=== PATIENT | female | born 1955 | race Caucasian/White ===

== ENCOUNTER 2018-03-27 12:04 | Inpatient (IN) | payer MEDICAID ==
[~2018-03-27] VITALS: Ht 160 cm; Wt 82.7 kg
[~2018-03-27 12:04] MED LIST: ALBU18HF2 IH; ALBU2.5V9 NEB; AMOX-422 PO; BUDE10.2 IH; DOCU-28 PO; LEVO75TA7 PO; SPIIN IH; VENL75CA61 PO
[2018-03-27] MEDS ORDERED: albuterol 2.5 MG/3 ML nebule CONTNEB PRN (12:10)
[2018-03-27] MEDS ORDERED: methylPREDNISolone sod succ 125mg/2ml vial IV ONE (12:10)
[2018-03-27] MEDS ORDERED: azithromycin/NS 500mg/250ml 250 ML IV ONE (12:10)
[2018-03-27] MEDS ORDERED: vancomycin/NS 1 GM ADD-VANTAGE 250 ML IV ONE (12:10)
[2018-03-27] MEDS ORDERED: cefepime 1GM/NS ADD-VANTAGE 100 ML IV ONE (12:10)
[2018-03-27] MEDS ORDERED: ipratropium 0.5 MG/2.5ML nebule IH ONE (12:10)
[2018-03-27] MEDS: magnesium 1gm/100ml D5W IVPB 100 ML IV SCH ×2 (12:26→13:37)
[2018-03-27 12:27] LABS: BASOPHILS % (AUTO) 0.3 % (0-1); EOSINOPHILS # (AUTO) 0.3 X10'3 (0-0.9); HEMATOCRIT 36.3 % (35.0-45.0); HEMOGLOBIN 12.5 g/dl (12.0-16.0); LYMPHOCYTES # (AUTO) 2.1 X10'3 (1.1-4.8); MEAN CORPUSCULAR HEMOGLOBIN 29.8 PG (27.0-31.0); MEAN CORPUSCULAR HGB CONC 34.5 % (33.0-36.5); MEAN CORPUSCULAR VOLUME 86.4 FL (78-98); MEAN PLATELET VOLUME 7.8 FL (7.4-10.4); MONOCYTES # (AUTO) 1.7 X10'3 (0-0.9); MONOCYTES % (AUTO) 11.9 % (2-12); NEUTROPHILS # (AUTO) 10.5 X10'3 (1.8-7.7); NEUTROPHILS % (AUTO) 71.8 % (42-75); PLATELET COUNT 274 X10'3 (140-440); RED CELL DISTRIBUTION WIDTH 14.9 % (11.5-14.5); WHITE BLOOD COUNT 14.6 X10'3 (4.5-11.0)
[2018-03-27] MEDS ORDERED: normal saline 1000ml 1,000 ML IV ONE (12:35)
[2018-03-27 12:38] LABS: INR 0.9 INR; PARTIAL THROMBOPLASTIN TIME 31 SECONDS (22-32); PROTHROMBIN TIME 9.6 SECONDS (9.0-12.0)
[2018-03-27 12:43] LABS: ALANINE AMINOTRANSFERASE 25 U/L (12-78); ALBUMIN 3.4 G/DL (3.4-5.0); ALBUMIN/GLOBULIN RATIO 0.9 (1.1-1.5); ALKALINE PHOSPHATASE 78 IU/L (46-116); ANION GAP 9 (8-16); ASPARTATE AMINO TRANSFERASE 18 U/L (10-37); BILIRUBIN,TOTAL 1.3 MG/DL (0.1-1.0); BLOOD UREA NITROGEN 10 MG/DL (7-18); BUN/CREATININE RATIO 12.2 (6.6-38.0); CALCIUM 9.3 MG/DL (8.5-10.1); CHLORIDE 100 MMOL/L (99-107); CREATININE 0.82 MG/DL (0.40-0.90); GLUCOSE 137 MG/DL (70-104); MAGNESIUM 1.7 MG/DL (1.5-2.4); POTASSIUM 3.8 MMOL/L (3.5-5.1); SODIUM 140 MMOL/L (135-145); TOTAL CARBON DIOXIDE 31.1 MMOL/L (24-32); TOTAL PROTEIN 7.4 G/DL (6.4-8.2); eGFR 71 ML/MIN
[2018-03-27 13:30] LABS: ABG BASE EXCESS 1.8 mmol/L (-2.0-3.0); ABG HCO3 28.4 mmol/L (22.0-26.0); ABG OXYGEN SATURATION 98.9 % (95-98); ABG PCO2 (T) 53.4 mmHg (32.0-45.0); ABG PH (T) 7.344 (7.350-7.450); ABG PO2 (T) 225.2 mmHg (83-108); ALLEN'S TEST Positive; FCOHb 0.1 % (0.5-1.5); FMetHb 0.2 % (0.3-1.12); FO2Hb 98.6 % (94-100); RESPIRATORY RATE 12 b/min; TOTAL HEMOGLOBIN 12.2 G/dl (12.0-16.0)
[2018-03-27] MEDS ORDERED: acetaminophen 325mg tablet PO PRN ×2 (15:00)
[2018-03-27] MEDS ORDERED: ondansetron/PF 4mg/2ml inj IV PRN (15:00)
[2018-03-27 15:29] LABS: CLARITY,URINE SLIGHTLY CLOUDY (Clear); COLOR,URINE YELLOW (Yellow); GLUCOSE, URINE NEGATIVE (Neg); KETONES,URINE NEGATIVE (Neg); LEUKOCYTE ESTERASE ,URINE MODERATE (Neg); NITRITES, URINE NEGATIVE (Neg); OCCULT BLOOD,URINE TRACE-LYSED (Neg); PROTEIN,URINE TRACE mg/dl (Neg); UROBILINOGEN,URINE 0.2 E.U/dL (0.2-1.0)
[2018-03-27 15:30] LABS: UA COLLECTION TYPE CLN CATCH MIDSTREAM
[2018-03-27 15:42] LABS: MUCUS STRANDS FEW /LPF (Neg); SQUAMOUS EPITHELIAL CELL,UR MODERATE /LPF (FEW)
[2018-03-27 15:43] LABS: BACTERIA,URINE 1+ /HPF (Neg); RBC,URINE 0-2 /HPF (0-2)
[2018-03-27] MEDS ORDERED: LEVA15HF4 INH (15:54)
[2018-03-27] MEDS ORDERED: FLUT16SP2 BOTHNARES (16:03)
[2018-03-27 16:45] VITALS: BP 140/79
[2018-03-27] MEDS ORDERED: non-formulary drug (Albuterol Sulfate (Ventolin Hfa) 2 PUFFS) IH PRN (18:20)
[2018-03-27] MEDS ORDERED: non-formulary drug (Levalbuterol Tartrate (Xopenex Hfa) 2 PUFFS) INH SCH (18:20)
[2018-03-27] MEDS ORDERED: albuterol 2.5 MG/3 ML nebule NEB PRN (18:20)
[2018-03-27 19:00] VITALS: BP 118/72
[2018-03-27] MEDS ORDERED: albuterol 2.5 MG/3 ML nebule NEB SCH (19:00)
[2018-03-27] MEDS ORDERED: dextrose ORAL solution 15 GM/59 ML bottle PO PRN ×2 (19:30)
[2018-03-27] MEDS ORDERED: dextrose 50%-water 50ml dispensing syringe IV PRN ×2 (19:30)
[2018-03-27] MEDS ORDERED: MESSAGE TO PHARMACY PO ONE (19:30)
[2018-03-27] MEDS ORDERED: glucagon, human recombinant 1mg kit SUBCUT PRN (19:30)
[2018-03-27] MEDS ORDERED: insulin Lispro (HumaLOG) vial - multi-dose SQ SCH (19:30)
[2018-03-27] MEDS: docusate sod 100mg capsule PO SCH (20:09)
[2018-03-27] MEDS: guaiFENesin ER 600mg tablet PO SCH (20:10)
[2018-03-27] MEDS: fluticasone nasal spray 16GM bottle NS SCH (20:10)
[2018-03-27] MEDS: levoFLOXACIN-Levaquin 750MG/D5 150 ML IV SCH (20:20)
[2018-03-27] MEDS: insulin glargine (Lantus) pen - multi-dose SQ SCH (21:00)
[2018-03-27] MEDS: ipratropium 0.5 MG/2.5ML nebule IH SCH (21:26)
[2018-03-27] MEDS: budesonide 0.5mg/2ml UD nebule IH SCH (21:26)
[2018-03-27 23:00] VITALS: BP 134/68
[2018-03-28] MEDS: methylPREDNISolone sod succ 125mg/2ml vial IV SCH ×3 (00:10→17:54)
[2018-03-28] MEDS: ipratropium 0.5 MG/2.5ML nebule IH SCH ×4 (02:33→20:40)
[2018-03-28 03:00] VITALS: BP 138/84
[2018-03-28 05:50] LABS: BASOPHILS % (AUTO) 0.1 % (0-1); EOSINOPHILS # (AUTO) 0.1 X10'3 (0-0.9); EOSINOPHILS % (AUTO) 1.1 % (0-6); HEMATOCRIT 33.4 % (35.0-45.0); HEMOGLOBIN 11.2 g/dl (12.0-16.0); LYMPHOCYTES # (AUTO) 0.8 X10'3 (1.1-4.8); MEAN CORPUSCULAR HEMOGLOBIN 29.2 PG (27.0-31.0); MEAN CORPUSCULAR HGB CONC 33.7 % (33.0-36.5); MEAN CORPUSCULAR VOLUME 86.7 FL (78-98); MEAN PLATELET VOLUME 8.2 FL (7.4-10.4); MONOCYTES # (AUTO) 0.3 X10'3 (0-0.9); MONOCYTES % (AUTO) 2.5 % (2-12); NEUTROPHILS # (AUTO) 9.1 X10'3 (1.8-7.7); NEUTROPHILS % (AUTO) 88.3 % (42-75); PLATELET COUNT 245 X10'3 (140-440); RED BLOOD COUNT 3.85 X10'6 (4.20-5.60); RED CELL DISTRIBUTION WIDTH 14.5 % (11.5-14.5); WHITE BLOOD COUNT 10.3 X10'3 (4.5-11.0)
[2018-03-28 06:20] LABS: ALBUMIN 3.1 G/DL (3.4-5.0); ANION GAP 6 (8-16); BLOOD UREA NITROGEN 10 MG/DL (7-18); BUN/CREATININE RATIO 11.6 (6.6-38.0); CALCIUM 9.2 MG/DL (8.5-10.1); CHLORIDE 102 MMOL/L (99-107); CREATININE 0.86 MG/DL (0.40-0.90); GLUCOSE 162 MG/DL (70-104); POTASSIUM 4.2 MMOL/L (3.5-5.1); SODIUM 139 MMOL/L (135-145); TOTAL CARBON DIOXIDE 30.6 MMOL/L (24-32); eGFR 67 ML/MIN
[2018-03-28 07:00] VITALS: BP 143/77
[2018-03-28] MEDS: levalbuterol 0.63mg/3ml nebule IH SCH ×3 (07:20→20:40)
[2018-03-28] MEDS: budesonide 0.5mg/2ml UD nebule IH SCH ×2 (07:22→20:40)
[2018-03-28] MEDS: levoFLOXACIN-Levaquin 750MG/D5 150 ML IV SCH (08:18)
[2018-03-28] MEDS: docusate sod 100mg capsule PO SCH ×2 (08:19→20:00)
[2018-03-28] MEDS: enoxaparin 40mg/0.4ml syringe SUBCUT SCH (08:19)
[2018-03-28] MEDS: guaiFENesin ER 600mg tablet PO SCH ×2 (08:19→20:00)
[2018-03-28] MEDS: levoTHYROXINE 75mcg tablet PO SCH (08:19)
[2018-03-28] MEDS: fluticasone nasal spray 16GM bottle NS SCH ×2 (09:16→21:00)
[2018-03-28 11:00] VITALS: BP 127/80
[2018-03-28 15:00] VITALS: BP 116/62
[2018-03-28 19:00] VITALS: BP 106/69
[2018-03-28] MEDS: lactobacillus rhamnosus 10,000 MMU CELLS/CAPSULE PO SCH (20:00)
[2018-03-28] MEDS: insulin glargine (Lantus) pen - multi-dose SQ SCH (21:00)
[2018-03-28 23:00] VITALS: BP 100/62
[2018-03-29] MEDS: methylPREDNISolone sod succ 125mg/2ml vial IV SCH ×2 (00:34→07:33)
[2018-03-29] MEDS: levalbuterol 0.63mg/3ml nebule IH SCH ×4 (01:55→20:53)
[2018-03-29] MEDS: ipratropium 0.5 MG/2.5ML nebule IH SCH ×4 (01:57→20:53)
[2018-03-29 03:00] VITALS: BP 124/67
[2018-03-29 06:00] VITALS: BP 124/78
[2018-03-29 06:10] LABS: BASOPHILS % (AUTO) 0 % (0-1); EOSINOPHILS # (AUTO) 0.2 X10'3 (0-0.9); HEMATOCRIT 34.5 % (35.0-45.0); HEMOGLOBIN 12.1 g/dl (12.0-16.0); LYMPHOCYTES # (AUTO) 1.1 X10'3 (1.1-4.8); LYMPHOCYTES % (AUTO) 7.3 % (21-51); MEAN CORPUSCULAR HEMOGLOBIN 30.5 PG (27.0-31.0); MEAN CORPUSCULAR VOLUME 87.2 FL (78-98); MONOCYTES # (AUTO) 0.5 X10'3 (0-0.9); MONOCYTES % (AUTO) 3.6 % (2-12); NEUTROPHILS # (AUTO) 13.4 X10'3 (1.8-7.7); NEUTROPHILS % (AUTO) 88.1 % (42-75); PLATELET COUNT 322 X10'3 (140-440); RED BLOOD COUNT 3.96 X10'6 (4.20-5.60); RED CELL DISTRIBUTION WIDTH 14.9 % (11.5-14.5); WHITE BLOOD COUNT 15.2 X10'3 (4.5-11.0)
[2018-03-29 07:04] LABS: ALBUMIN 3.2 G/DL (3.4-5.0); ANION GAP 6 (8-16); BLOOD UREA NITROGEN 15 MG/DL (7-18); BUN/CREATININE RATIO 15.3 (6.6-38.0); CALCIUM 9.8 MG/DL (8.5-10.1); CHLORIDE 102 MMOL/L (99-107); CREATININE 0.98 MG/DL (0.40-0.90); GLUCOSE 163 MG/DL (70-104); POTASSIUM 4.2 MMOL/L (3.5-5.1); SODIUM 139 MMOL/L (135-145); TOTAL CARBON DIOXIDE 31.2 MMOL/L (24-32); eGFR 58 ML/MIN
[2018-03-29] MEDS: docusate sod 100mg capsule PO SCH ×2 (07:33→21:19)
[2018-03-29] MEDS: guaiFENesin ER 600mg tablet PO SCH ×2 (07:33→21:19)
[2018-03-29] MEDS: lactobacillus rhamnosus 10,000 MMU CELLS/CAPSULE PO SCH ×2 (07:33→21:19)
[2018-03-29] MEDS: levoTHYROXINE 75mcg tablet PO SCH (07:33)
[2018-03-29] MEDS: enoxaparin 40mg/0.4ml syringe SUBCUT SCH (07:34)
[2018-03-29] MEDS: levoFLOXACIN-Levaquin 750MG/D5 150 ML IV SCH (07:34)
[2018-03-29] MEDS: magnesium hydroxide 30ml (MOM) UD suspension PO PRN (07:34)
[2018-03-29] MEDS: budesonide 0.5mg/2ml UD nebule IH SCH ×2 (08:16→20:53)
[2018-03-29] MEDS: fluticasone nasal spray 16GM bottle NS SCH ×2 (09:12→21:20)
[2018-03-29 11:00] VITALS: BP 142/79
[2018-03-29] MEDS: prednisone 10mg tablet PO SCH (14:03)
[2018-03-29 15:00] VITALS: BP 175/86
[2018-03-29] MEDS: amLODIPine 5mg tablet PO SCH (15:48)
[2018-03-29 19:00] VITALS: BP 122/70
[2018-03-29] MEDS: insulin glargine (Lantus) pen - multi-dose SQ SCH (21:00)
[2018-03-29 23:00] VITALS: BP 150/81
[2018-03-30] MEDS: levalbuterol 0.63mg/3ml nebule IH SCH ×3 (02:44→15:52)
[2018-03-30] MEDS: ipratropium 0.5 MG/2.5ML nebule IH SCH ×3 (02:44→15:52)
[2018-03-30 03:00] VITALS: BP 134/85
[2018-03-30 05:52] LABS: BASOPHILS # (AUTO) 0.1 X10'3 (0-0.2); BASOPHILS % (AUTO) 0.6 % (0-1); EOSINOPHILS % (AUTO) 0 % (0-6); HEMATOCRIT 34.2 % (35.0-45.0); HEMOGLOBIN 11.7 g/dl (12.0-16.0); LYMPHOCYTES # (AUTO) 1.6 X10'3 (1.1-4.8); LYMPHOCYTES % (AUTO) 12.9 % (21-51); MEAN CORPUSCULAR HGB CONC 34.1 % (33.0-36.5); MEAN CORPUSCULAR VOLUME 87.9 FL (78-98); MEAN PLATELET VOLUME 8.2 FL (7.4-10.4); MONOCYTES # (AUTO) 0.9 X10'3 (0-0.9); MONOCYTES % (AUTO) 6.9 % (2-12); NEUTROPHILS % (AUTO) 79.6 % (42-75); PLATELET COUNT 310 X10'3 (140-440); RED BLOOD COUNT 3.89 X10'6 (4.20-5.60); RED CELL DISTRIBUTION WIDTH 14.1 % (11.5-14.5); WHITE BLOOD COUNT 12.6 X10'3 (4.5-11.0)
[2018-03-30 06:34] LABS: ANION GAP 4 (8-16); BLOOD UREA NITROGEN 16 MG/DL (7-18); CALCIUM 9.4 MG/DL (8.5-10.1); CHLORIDE 102 MMOL/L (99-107); GLUCOSE 128 MG/DL (70-104); POTASSIUM 4.2 MMOL/L (3.5-5.1); SODIUM 139 MMOL/L (135-145); TOTAL CARBON DIOXIDE 32.8 MMOL/L (24-32); eGFR 73 ML/MIN
[2018-03-30 07:00] VITALS: BP 130/70
[2018-03-30] MEDS: fluticasone nasal spray 16GM bottle NS SCH (08:19)
[2018-03-30] MEDS: docusate sod 100mg capsule PO SCH (08:19)
[2018-03-30] MEDS: levoTHYROXINE 75mcg tablet PO SCH (08:20)
[2018-03-30] MEDS: lactobacillus rhamnosus 10,000 MMU CELLS/CAPSULE PO SCH (08:20)
[2018-03-30] MEDS: guaiFENesin ER 600mg tablet PO SCH (08:20)
[2018-03-30] MEDS: levoFLOXACIN-Levaquin 750MG/D5 150 ML IV SCH (08:20)
[2018-03-30] MEDS: amLODIPine 5mg tablet PO SCH (08:20)
[2018-03-30] MEDS: prednisone 10mg tablet PO SCH (08:20)
[2018-03-30] MEDS: mag hydrox/Alum hydrox/simeth 30ml oral suspension PO PRN ×2 (08:22→12:35)
[2018-03-30] MEDS: magnesium hydroxide 30ml (MOM) UD suspension PO PRN ×2 (08:22→11:29)
[2018-03-30] MEDS: enoxaparin 40mg/0.4ml syringe SUBCUT SCH (08:23)
[2018-03-30 08:29] LABS: RPR Non Reactive (Non Reactive)
[2018-03-30] MEDS: budesonide 0.5mg/2ml UD nebule IH SCH (08:54)
[2018-03-30] MEDS ORDERED: PRED10TA23 PO (12:10)
[2018-03-30] MEDS ORDERED: LEVO500T2 PO (12:10)
[2018-03-30] MEDS ORDERED: AMLO5TAB16 PO (12:10)
[2018-03-30 12:27] VITALS: BP 124/75
== END 2018-03-30 16:10 | disposition home health service (06) | DRG 139 ==
LOC: ER 12:04 → ED HOLD 14:59 → EDBEDREQ 15:32 → PCU 3S 16:35 → CMPBEDREQ 19:37
PROVIDERS: ADMIT Internal Medicine; ATTEND Internal Medicine
PROC: 5A09357 Assistance with Respiratory Ventilation, Less than 24 Consecutive Hours, Continuous Positive Airway Pressure (ICD-10-PCS; principal; 2018-03-27)
PROC: 5A09357 Assistance with Respiratory Ventilation, Less than 24 Consecutive Hours, Continuous Positive Airway Pressure (ICD-10-PCS; 2018-03-29)
DX: J18.9 Pneumonia, unspecified organism (principal); J96.21 Acute and chronic respiratory failure with hypoxia; J44.0 Chronic obstructive pulmonary disease with (acute) lower respiratory infection; E11.9 Type 2 diabetes mellitus without complications; N39.0 Urinary tract infection, site not specified; B95.4 Other streptococcus as the cause of diseases classified elsewhere; J98.11 Atelectasis; E03.9 Hypothyroidism, unspecified; I25.10 Atherosclerotic heart disease of native coronary artery without angina pectoris; J44.1 Chronic obstructive pulmonary disease with (acute) exacerbation; J96.22 Acute and chronic respiratory failure with hypercapnia; K59.00 Constipation, unspecified; F32.9 Major depressive disorder, single episode, unspecified; T38.0X5A Adverse effect of glucocorticoids and synthetic analogues, initial encounter; Z83.3 Family history of diabetes mellitus; Z87.891 Personal history of nicotine dependence; Z88.6 Allergy status to analgesic agent; Z91.018 Allergy to other foods; Z79.890 Hormone replacement therapy; Y92.89 Other specified places as the place of occurrence of the external cause; Z79.899 Other long term (current) drug therapy; Z90.49 Acquired absence of other specified parts of digestive tract
CPT/HCPCS: 36415; 36600; 71045; 80048; 80053; 81001; 82803; 82948; 83036; 83605; 83735; 83880; 84145; 84443; 84484; 85018; 85025; 85610; 85730; 86592; 87040; 87070; 87088; 93005; 94640; 94660; 94667; 94760; 96365; 96367; 99285; A6258; J0456; J0692; J1650; J1815; J1956; J2930; J7030; J7512; J7614; J7626

== ENCOUNTER 2018-05-28 04:31 | Emergency (ER) | payer MEDICAID ==
[~2018-05-28] VITALS: Ht 157.5 cm; Wt 79.0 kg
[~2018-05-28 04:31] MED LIST changes: +AMLO5TAB16 PO; -AMOX-422 PO; +FLUT16SP2 BOTHNARES; +LEVA15HF4 INH; -VENL75CA61 PO
[2018-05-28 04:56] LABS: BASOPHILS # (AUTO) 0.1 X10'3 (0-0.2); EOSINOPHILS # (AUTO) 0.9 X10'3 (0-0.9); EOSINOPHILS % (AUTO) 9.2 % (0-6); HEMATOCRIT 38.4 % (35.0-45.0); HEMOGLOBIN 12.6 g/dl (12.0-16.0); LYMPHOCYTES # (AUTO) 2.7 X10'3 (1.1-4.8); LYMPHOCYTES % (AUTO) 28.6 % (21-51); MEAN CORPUSCULAR HEMOGLOBIN 27.5 PG (27.0-31.0); MEAN CORPUSCULAR HGB CONC 32.7 % (33.0-36.5); MEAN PLATELET VOLUME 8.5 FL (7.4-10.4); MONOCYTES # (AUTO) 0.9 X10'3 (0-0.9); MONOCYTES % (AUTO) 9.4 % (2-12); NEUTROPHILS % (AUTO) 51.8 % (42-75); PLATELET COUNT 228 X10'3 (140-440); RED BLOOD COUNT 4.57 X10'6 (4.20-5.60); RED CELL DISTRIBUTION WIDTH 13.4 % (11.5-14.5); WHITE BLOOD COUNT 9.6 X10'3 (4.5-11.0)
[2018-05-28 05:01] LABS: INR 0.9 INR; PARTIAL THROMBOPLASTIN TIME 28 SECONDS (22-32); PROTHROMBIN TIME 9.4 SECONDS (9.0-12.0)
[2018-05-28 05:05] LABS: ALANINE AMINOTRANSFERASE 19 U/L (12-78); ALBUMIN 3.5 G/DL (3.4-5.0); ALBUMIN/GLOBULIN RATIO 0.9 (1.1-1.5); ALKALINE PHOSPHATASE 87 IU/L (46-116); ANION GAP 8 (8-16); ASPARTATE AMINO TRANSFERASE 17 U/L (10-37); BILIRUBIN,TOTAL 0.4 MG/DL (0.1-1.0); BLOOD UREA NITROGEN 16 MG/DL (7-18); BUN/CREATININE RATIO 22.9 (6.6-38.0); CALCIUM 9.7 MG/DL (8.5-10.1); CHLORIDE 104 MMOL/L (99-107); GLUCOSE 119 MG/DL (70-104); POTASSIUM 3.9 MMOL/L (3.5-5.1); SODIUM 143 MMOL/L (135-145); TOTAL CARBON DIOXIDE 30.8 MMOL/L (24-32); TOTAL PROTEIN 7.2 G/DL (6.4-8.2); eGFR 85 ML/MIN
[2018-05-28] MEDS ORDERED: methylPREDNISolone sod succ 125mg/2ml vial IV ONE (05:20)
[2018-05-28] MEDS ORDERED: ipratropium/albuterol 3ml nebule NEB ONE (05:20)
[2018-05-28 06:28] VITALS: BP 111/48
[2018-05-28] MEDS ORDERED: AZIT250T PO (07:01)
== END 2018-05-28 09:25 | disposition home or self-care (01) ==
LOC: ER 04:32
DX: J44.9 Chronic obstructive pulmonary disease, unspecified (principal); R06.09 Other forms of dyspnea; I25.10 Atherosclerotic heart disease of native coronary artery without angina pectoris; I10 Essential (primary) hypertension; I25.2 Old myocardial infarction; E11.9 Type 2 diabetes mellitus without complications; Z87.891 Personal history of nicotine dependence; Z90.49 Acquired absence of other specified parts of digestive tract; Z87.01 Personal history of pneumonia (recurrent); Z88.5 Allergy status to narcotic agent; Z79.899 Other long term (current) drug therapy; Z99.81 Dependence on supplemental oxygen
CPT/HCPCS: 36415; 71045; 80053; 84484; 85025; 85610; 85730; 93005; 94640; 94760; 96374; 99285; J2930

== ENCOUNTER 2018-07-11 08:08 | Inpatient (IN) | payer MEDICAID ==
[~2018-07-11] VITALS: Ht 160 cm; Wt 79.0 kg
[2018-07-11] MEDS ORDERED: methylPREDNISolone sod succ 125mg/2ml vial IV ONE (08:15)
[2018-07-11] MEDS ORDERED: normal saline 1000ML IV soln IVB ONE (08:15)
[2018-07-11] MEDS ORDERED: ipratropium/albuterol 3ml nebule NEB ONE ×2 (08:55→09:55)
[2018-07-11 09:01] LABS: BASOPHILS % (AUTO) 0.5 % (0-1); EOSINOPHILS # (AUTO) 0.2 X10'3 (0-0.9); EOSINOPHILS % (AUTO) 2.2 % (0-6); HEMATOCRIT 38.6 % (35.0-45.0); HEMOGLOBIN 12.7 g/dl (12.0-16.0); LYMPHOCYTES # (AUTO) 1.4 X10'3 (1.1-4.8); LYMPHOCYTES % (AUTO) 15.8 % (21-51); MEAN CORPUSCULAR HEMOGLOBIN 26.8 PG (27.0-31.0); MEAN CORPUSCULAR HGB CONC 32.8 % (33.0-36.5); MEAN CORPUSCULAR VOLUME 81.6 FL (78-98); MEAN PLATELET VOLUME 7.7 FL (7.4-10.4); MONOCYTES # (AUTO) 0.4 X10'3 (0-0.9); MONOCYTES % (AUTO) 4.9 % (2-12); NEUTROPHILS # (AUTO) 6.6 X10'3 (1.8-7.7); NEUTROPHILS % (AUTO) 76.6 % (42-75); PLATELET COUNT 259 X10'3 (140-440); RED BLOOD COUNT 4.73 X10'6 (4.20-5.60); RED CELL DISTRIBUTION WIDTH 14.7 % (11.5-14.5); WHITE BLOOD COUNT 8.7 X10'3 (4.5-11.0)
[2018-07-11 09:25] LABS: ALANINE AMINOTRANSFERASE 22 U/L (12-78); ALBUMIN 3.3 G/DL (3.4-5.0); ALBUMIN/GLOBULIN RATIO 0.9 (1.1-1.5); ALKALINE PHOSPHATASE 79 IU/L (46-116); ANION GAP 7 (8-16); ASPARTATE AMINO TRANSFERASE 20 U/L (10-37); BILIRUBIN,TOTAL 0.7 MG/DL (0.1-1.0); BLOOD UREA NITROGEN 13 MG/DL (7-18); BUN/CREATININE RATIO 22.8 (6.6-38.0); CALCIUM 9.1 MG/DL (8.5-10.1); CHLORIDE 102 MMOL/L (99-107); CREATININE 0.57 MG/DL (0.40-0.90); GLUCOSE 126 MG/DL (70-104); POTASSIUM 4.4 MMOL/L (3.5-5.1); SODIUM 140 MMOL/L (135-145); TOTAL CARBON DIOXIDE 31.2 MMOL/L (24-32); TOTAL PROTEIN 6.8 G/DL (6.4-8.2); eGFR > 90 ML/MIN
[2018-07-11] MEDS: normal saline 1000ml 1,000 ML IV SCH (13:13)
[2018-07-11] MEDS ORDERED: magnesium Cl slow-release 64mg tablet PO PRN (13:15)
[2018-07-11] MEDS ORDERED: acetaminophen 325mg tablet PO PRN (13:15)
[2018-07-11] MEDS ORDERED: potassium Cl 20 mEq SR tablet PO PRN ×2 (13:15)
[2018-07-11] MEDS ORDERED: potassium Cl 40MEQ/NS 500ml 500 ML IV PRN ×2 (13:15)
[2018-07-11] MEDS ORDERED: ondansetron/PF 4mg/2ml inj IV PRN (13:15)
[2018-07-11] MEDS ORDERED: magnesium hydroxide 30ml (MOM) UD suspension PO PRN (13:15)
[2018-07-11] MEDS ORDERED: magnesium 4gm in 100ml NS 100 ML IV PRN (13:15)
[2018-07-11] MEDS ORDERED: mag hydrox/Alum hydrox/simeth 30ml oral suspension PO PRN (13:15)
[2018-07-11] MEDS ORDERED: magnesium 1gm/100ml D5W IVPB 100 ML IV PRN (13:15)
[2018-07-11 13:56] LABS: ABG BASE EXCESS 2.4 mmol/L (-2.0-3.0); ABG HCO3 30.2 mmol/L (22.0-26.0); ABG OXYGEN SATURATION 86.8 % (95-98); ABG PCO2 (T) 61.1 mmHg (32.0-45.0); ABG PH (T) 7.312 (7.350-7.450); ALLEN'S TEST Positive; FCOHb 0.9 % (0.5-1.5); FLOW 3 L/min; FMetHb 0.3 % (0.3-1.12); FO2Hb 85.8 % (94-100)
[2018-07-11] MEDS ORDERED: albuterol 2.5 MG/3 ML nebule ONE (14:01)
[2018-07-11] MEDS: albuterol 2.5 MG/3 ML nebule NEB SCH ×3 (14:03→23:07)
[2018-07-11 16:00] VITALS: BP 146/82
[2018-07-11] MEDS ORDERED: albuterol 2.5 MG/3 ML nebule NEB SCH (16:00)
[2018-07-11 19:00] VITALS: BP 159/89
[2018-07-11] MEDS ORDERED: albuterol 2.5 MG/3 ML nebule NEB PRN (19:20)
[2018-07-11] MEDS: heparin, porcine 5000 units/ml vial SQ SCH (22:21)
[2018-07-12] VITALS: BP 122/66
[2018-07-12] MEDS: albuterol 2.5 MG/3 ML nebule NEB SCH ×2 (03:04→07:50)
[2018-07-12] MEDS: acetaminophen 325mg tablet PO PRN ×2 (03:41→09:43)
[2018-07-12 06:05] LABS: BASOPHILS % (AUTO) 0.3 % (0-1); EOSINOPHILS # (AUTO) 0.1 X10'3 (0-0.9); EOSINOPHILS % (AUTO) 0.6 % (0-6); HEMATOCRIT 39.1 % (35.0-45.0); HEMOGLOBIN 12.8 g/dl (12.0-16.0); LYMPHOCYTES # (AUTO) 1.3 X10'3 (1.1-4.8); LYMPHOCYTES % (AUTO) 15.8 % (21-51); MEAN CORPUSCULAR HEMOGLOBIN 26.6 PG (27.0-31.0); MEAN CORPUSCULAR HGB CONC 32.8 % (33.0-36.5); MEAN CORPUSCULAR VOLUME 81.2 FL (78-98); MEAN PLATELET VOLUME 8.4 FL (7.4-10.4); MONOCYTES # (AUTO) 0.7 X10'3 (0-0.9); MONOCYTES % (AUTO) 8.3 % (2-12); NEUTROPHILS # (AUTO) 6.1 X10'3 (1.8-7.7); PLATELET COUNT 285 X10'3 (140-440); RED BLOOD COUNT 4.82 X10'6 (4.20-5.60); RED CELL DISTRIBUTION WIDTH 14.4 % (11.5-14.5); WHITE BLOOD COUNT 8.1 X10'3 (4.5-11.0)
[2018-07-12 06:24] LABS: ALBUMIN 3.2 G/DL (3.4-5.0); ANION GAP 5 (8-16); BLOOD UREA NITROGEN 14 MG/DL (7-18); CALCIUM 9.9 MG/DL (8.5-10.1); CHLORIDE 100 MMOL/L (99-107); GLUCOSE 121 MG/DL (70-104); MAGNESIUM 1.6 MG/DL (1.5-2.4); POTASSIUM 4.3 MMOL/L (3.5-5.1); SODIUM 139 MMOL/L (135-145); TOTAL CARBON DIOXIDE 33.9 MMOL/L (24-32); eGFR 85 ML/MIN
[2018-07-12 08:00] VITALS: BP 98/54
[2018-07-12] MEDS ORDERED: CefTRIAXone 2gm/D5W 50ml 50 ML IV SCH (08:00)
[2018-07-12] MEDS: K and/or MAG REPLACEMENT MC SCH (08:00)
[2018-07-12] MEDS ORDERED: methylPREDNISolone sod succ 125mg/2ml vial IV SCH (08:00)
[2018-07-12] MEDS: heparin, porcine 5000 units/ml vial SQ SCH ×2 (08:57→19:47)
[2018-07-12] MEDS ORDERED: ipratropium 0.5 MG/2.5ML nebule IH PRN (10:15)
[2018-07-12 11:00] VITALS: BP 147/77
[2018-07-12] MEDS: levoTHYROXINE 75mcg tablet PO SCH (12:15)
[2018-07-12] MEDS: amLODIPine 5mg tablet PO SCH (12:15)
[2018-07-12] MEDS ORDERED: LORazepam 0.5 MG tablet PO PRN (13:05)
[2018-07-12] MEDS: ipratropium/albuterol 3ml nebule NEB SCH ×2 (19:12→22:57)
[2018-07-12] MEDS: levoFLOXACIN-Levaquin 750MG/D5 150 ML IV SCH (19:39)
[2018-07-12] MEDS: methylPREDNISolone sod succ 125mg/2ml vial IV SCH (19:40)
[2018-07-12] MEDS: docusate sod 100mg capsule PO SCH (19:42)
[2018-07-12] MEDS: fluticasone nasal spray 16GM bottle NS SCH (19:49)
[2018-07-12 20:00] VITALS: BP 124/67
[2018-07-13] VITALS: BP 98/64
[2018-07-13] MEDS: ipratropium/albuterol 3ml nebule NEB SCH ×6 (02:54→23:39)
[2018-07-13] MEDS: methylPREDNISolone sod succ 125mg/2ml vial IV SCH ×4 (03:01→21:54)
[2018-07-13 05:02] LABS: BASOPHILS % (AUTO) 0 % (0-1); EOSINOPHILS % (AUTO) 0 % (0-6); HEMATOCRIT 35.7 % (35.0-45.0); HEMOGLOBIN 11.6 g/dl (12.0-16.0); LYMPHOCYTES # (AUTO) 0.7 X10'3 (1.1-4.8); LYMPHOCYTES % (AUTO) 9.7 % (21-51); MEAN CORPUSCULAR HEMOGLOBIN 26.4 PG (27.0-31.0); MEAN CORPUSCULAR HGB CONC 32.5 % (33.0-36.5); MEAN CORPUSCULAR VOLUME 81.1 FL (78-98); MEAN PLATELET VOLUME 8.1 FL (7.4-10.4); MONOCYTES # (AUTO) 0.1 X10'3 (0-0.9); MONOCYTES % (AUTO) 1.6 % (2-12); NEUTROPHILS # (AUTO) 6.1 X10'3 (1.8-7.7); NEUTROPHILS % (AUTO) 88.7 % (42-75); PLATELET COUNT 272 X10'3 (140-440); RED CELL DISTRIBUTION WIDTH 14.5 % (11.5-14.5); WHITE BLOOD COUNT 6.9 X10'3 (4.5-11.0)
[2018-07-13 05:29] LABS: ALBUMIN 2.9 G/DL (3.4-5.0); ANION GAP 4 (8-16); BLOOD UREA NITROGEN 18 MG/DL (7-18); CALCIUM 9.6 MG/DL (8.5-10.1); CHLORIDE 102 MMOL/L (99-107); CREATININE 0.72 MG/DL (0.40-0.90); GLUCOSE 145 MG/DL (70-104); MAGNESIUM 1.7 MG/DL (1.5-2.4); POTASSIUM 4.1 MMOL/L (3.5-5.1); SODIUM 140 MMOL/L (135-145); eGFR 82 ML/MIN
[2018-07-13 07:00] VITALS: BP 120/79
[2018-07-13] MEDS: fluticasone nasal spray 16GM bottle NS SCH ×2 (08:00→20:00)
[2018-07-13] MEDS: K and/or MAG REPLACEMENT MC SCH (08:00)
[2018-07-13] MEDS: levoFLOXACIN-Levaquin 750MG/D5 150 ML IV SCH (09:30)
[2018-07-13] MEDS: heparin, porcine 5000 units/ml vial SQ SCH ×2 (09:30→21:57)
[2018-07-13] MEDS: levoTHYROXINE 75mcg tablet PO SCH (09:31)
[2018-07-13] MEDS: docusate sod 100mg capsule PO SCH ×2 (09:31→21:58)
[2018-07-13] MEDS: amLODIPine 5mg tablet PO SCH (09:32)
[2018-07-13] MEDS ORDERED: magnesium 2GM in 50ml NS 50 ML IV PRN (09:46)
[2018-07-13 11:00] VITALS: BP 122/84
[2018-07-13] MEDS: normal saline 1000ml 1,000 ML IV SCH ×2 (13:13→22:08)
[2018-07-13 20:00] VITALS: BP 140/80
[2018-07-13] MEDS: guaiFENesin ER 600mg tablet PO SCH (21:58)
[2018-07-13] MEDS: acetaminophen 325mg tablet PO PRN (22:54)
[2018-07-14] VITALS: BP 116/71
[2018-07-14] MEDS: methylPREDNISolone sod succ 125mg/2ml vial IV SCH ×4 (03:10→19:54)
[2018-07-14] MEDS: ipratropium/albuterol 3ml nebule NEB SCH ×6 (03:15→23:36)
[2018-07-14 07:00] VITALS: BP_SYST 107; BP_SYST 114; BP_DIAS 69; BP_DIAS 70
[2018-07-14] MEDS: amLODIPine 5mg tablet PO SCH (08:00)
[2018-07-14] MEDS: K and/or MAG REPLACEMENT MC SCH (08:00)
[2018-07-14] MEDS: fluticasone nasal spray 16GM bottle NS SCH ×2 (08:00→19:51)
[2018-07-14 08:21] LABS: BASOPHILS % (AUTO) 0.2 % (0-1); EOSINOPHILS % (AUTO) 0 % (0-6); HEMATOCRIT 40.8 % (35.0-45.0); HEMOGLOBIN 13.4 g/dl (12.0-16.0); LYMPHOCYTES # (AUTO) 0.9 X10'3 (1.1-4.8); LYMPHOCYTES % (AUTO) 8.1 % (21-51); MEAN CORPUSCULAR HEMOGLOBIN 26.9 PG (27.0-31.0); MEAN CORPUSCULAR HGB CONC 32.8 % (33.0-36.5); MONOCYTES # (AUTO) 0.3 X10'3 (0-0.9); MONOCYTES % (AUTO) 3.2 % (2-12); NEUTROPHILS # (AUTO) 9.4 X10'3 (1.8-7.7); NEUTROPHILS % (AUTO) 88.5 % (42-75); PLATELET COUNT 309 X10'3 (140-440); RED BLOOD COUNT 4.97 X10'6 (4.20-5.60); WHITE BLOOD COUNT 10.6 X10'3 (4.5-11.0)
[2018-07-14 08:23] LABS: ALBUMIN 3.7 G/DL (3.4-5.0); ANION GAP 7 (8-16); BLOOD UREA NITROGEN 17 MG/DL (7-18); BUN/CREATININE RATIO 18.9 (6.6-38.0); CALCIUM 10.3 MG/DL (8.5-10.1); CHLORIDE 99 MMOL/L (99-107); GLUCOSE 181 MG/DL (70-104); MAGNESIUM 1.9 MG/DL (1.5-2.4); POTASSIUM 3.5 MMOL/L (3.5-5.1); SODIUM 140 MMOL/L (135-145); TOTAL CARBON DIOXIDE 33.9 MMOL/L (24-32); eGFR 63 ML/MIN
[2018-07-14] MEDS: levoTHYROXINE 75mcg tablet PO SCH (08:53)
[2018-07-14] MEDS: heparin, porcine 5000 units/ml vial SQ SCH ×2 (08:53→19:54)
[2018-07-14] MEDS: guaiFENesin ER 600mg tablet PO SCH ×2 (08:53→19:56)
[2018-07-14] MEDS: docusate sod 100mg capsule PO SCH ×2 (08:53→19:54)
[2018-07-14 11:00] VITALS: BP 114/70
[2018-07-14] MEDS: levoFLOXACIN 750MG TABLET PO SCH (11:00)
[2018-07-14] MEDS: acetaminophen 325mg tablet PO PRN (19:56)
[2018-07-14 20:00] VITALS: BP 138/85
[2018-07-15] VITALS: BP 85/50
[2018-07-15 01:18] VITALS: BP 139/70
[2018-07-15] MEDS: methylPREDNISolone sod succ 125mg/2ml vial IV SCH ×3 (01:21→14:00)
[2018-07-15] MEDS: ipratropium/albuterol 3ml nebule NEB SCH ×5 (03:34→18:56)
[2018-07-15] MEDS: acetaminophen 325mg tablet PO PRN (04:18)
[2018-07-15 06:58] LABS: BASOPHILS % (AUTO) 0.3 % (0-1); EOSINOPHILS # (AUTO) 0.1 X10'3 (0-0.9); EOSINOPHILS % (AUTO) 0.9 % (0-6); HEMATOCRIT 35.2 % (35.0-45.0); HEMOGLOBIN 11.5 g/dl (12.0-16.0); LYMPHOCYTES # (AUTO) 0.7 X10'3 (1.1-4.8); LYMPHOCYTES % (AUTO) 8.7 % (21-51); MEAN CORPUSCULAR HEMOGLOBIN 26.9 PG (27.0-31.0); MEAN CORPUSCULAR HGB CONC 32.7 % (33.0-36.5); MEAN CORPUSCULAR VOLUME 82.1 FL (78-98); MEAN PLATELET VOLUME 8.4 FL (7.4-10.4); MONOCYTES # (AUTO) 0.2 X10'3 (0-0.9); MONOCYTES % (AUTO) 2.7 % (2-12); NEUTROPHILS # (AUTO) 7.5 X10'3 (1.8-7.7); NEUTROPHILS % (AUTO) 87.4 % (42-75); PLATELET COUNT 250 X10'3 (140-440); RED BLOOD COUNT 4.29 X10'6 (4.20-5.60); WHITE BLOOD COUNT 8.6 X10'3 (4.5-11.0)
[2018-07-15 07:00] VITALS: BP 157/58
[2018-07-15 07:09] LABS: ALBUMIN 3.1 G/DL (3.4-5.0); ANION GAP 4 (8-16); BLOOD UREA NITROGEN 18 MG/DL (7-18); BUN/CREATININE RATIO 25.4 (6.6-38.0); CALCIUM 9.5 MG/DL (8.5-10.1); CHLORIDE 103 MMOL/L (99-107); CREATININE 0.71 MG/DL (0.40-0.90); GLUCOSE 170 MG/DL (70-104); SODIUM 143 MMOL/L (135-145); TOTAL CARBON DIOXIDE 36.1 MMOL/L (24-32); eGFR 83 ML/MIN
[2018-07-15] MEDS: K and/or MAG REPLACEMENT MC SCH (08:00)
[2018-07-15] MEDS: levoTHYROXINE 75mcg tablet PO SCH (08:03)
[2018-07-15] MEDS: amLODIPine 5mg tablet PO SCH (08:03)
[2018-07-15] MEDS: guaiFENesin ER 600mg tablet PO SCH (08:03)
[2018-07-15] MEDS: fluticasone nasal spray 16GM bottle NS SCH (08:04)
[2018-07-15] MEDS: heparin, porcine 5000 units/ml vial SQ SCH (08:05)
[2018-07-15] MEDS: docusate sod 100mg capsule PO SCH (08:05)
[2018-07-15 12:00] VITALS: BP 106/65
[2018-07-15] MEDS: levoFLOXACIN 750MG TABLET PO SCH (12:44)
[2018-07-15] MEDS: normal saline 1000ml 1,000 ML IV SCH (13:13)
[2018-07-15] MEDS ORDERED: GUAI600T45 PO (15:32)
[2018-07-15] MEDS ORDERED: LEVO500T89 PO (15:32)
[2018-07-15] MEDS ORDERED: PRED10TA23 PO (15:32)
[2018-07-15] MEDS ORDERED: COL100C PO (15:32)
[2018-07-15 19:00] VITALS: BP 146/86
[2018-07-15] MEDS ORDERED: lactobacillus rhamnosus 10,000 MMU CELLS/CAPSULE PO SCH (20:00)
== END 2018-07-15 19:35 | disposition home health service (06) | DRG 140 ==
LOC: ER 08:08 → ED HOLD 13:13 → SUR 3N 15:26
PROVIDERS: ADMIT Internal Medicine; ATTEND Family Medicine
DX: J44.1 Chronic obstructive pulmonary disease with (acute) exacerbation (principal); J96.20 Acute and chronic respiratory failure, unspecified whether with hypoxia or hypercapnia; Z99.81 Dependence on supplemental oxygen; I10 Essential (primary) hypertension; I25.10 Atherosclerotic heart disease of native coronary artery without angina pectoris; Z66 Do not resuscitate; Z60.2 Problems related to living alone; I36.1 Nonrheumatic tricuspid (valve) insufficiency; E11.9 Type 2 diabetes mellitus without complications; F32.9 Major depressive disorder, single episode, unspecified; Z90.49 Acquired absence of other specified parts of digestive tract; Z88.6 Allergy status to analgesic agent; Z79.890 Hormone replacement therapy; Z91.018 Allergy to other foods; Z71.6 Tobacco abuse counseling; I25.2 Old myocardial infarction; Z79.899 Other long term (current) drug therapy; Z87.891 Personal history of nicotine dependence
CPT/HCPCS: 36415; 36600; 71045; 80048; 80053; 82803; 82948; 83036; 83605; 83735; 84443; 85018; 85025; 87040; 87070; 93306; 94640; 94760; 96361; 96374; 97110; 97116; 97162; 97530; 99285; G0378; J0696; J1644; J1956; J2930; J7030

== ENCOUNTER 2018-09-19 11:22 | Inpatient (IN) | payer MEDICAID | END 2018-09-21 17:15 | disposition home or self-care (01) | LOC: ER 11:22 → ED HOLD 17:51 → PCU 3S 21:10 ==

== ENCOUNTER 2018-10-14 09:54 | Emergency (ER) | payer MEDICAID ==
[~2018-10-14] VITALS: Ht 157.5 cm; Wt 77.3 kg
[~2018-10-14 09:54] MED LIST changes: -ALBU18HF2 IH; -ALBU2.5V9 NEB; -AMLO5TAB16 PO; -DOCU-28 PO; +LISI-604 PO; +PRED10TA23 PO
[2018-10-14] MEDS ORDERED: ipratropium/albuterol 3ml nebule NEB ONE (11:35)
[2018-10-14] MEDS ORDERED: methylPREDNISolone sod succ 125mg/2ml vial IV ONE (11:35)
[2018-10-14] MEDS ORDERED: PRED10TA23 PO (11:42)
[2018-10-14] MEDS ORDERED: AZIT250T83 PO (11:42)
[2018-10-14] MEDS ORDERED: POTA10TA19 PO (11:42)
[2018-10-14] MEDS ORDERED: FURO-150 PO (11:42)
--- NOTE | 2018-10-14 11:55 | NUR ---
PT REFUSING XRAY UNTIL SHE GETS HER BREATHING TREATMENT
[2018-10-14 12:00] LABS: BASOPHILS % (AUTO) 0.6 % (0-1); EOSINOPHILS # (AUTO) 0.2 X10'3 (0-0.9); EOSINOPHILS % (AUTO) 2.8 % (0-6); HEMATOCRIT 36.9 % (35.0-45.0); HEMOGLOBIN 11.9 g/dl (12.0-16.0); LYMPHOCYTES # (AUTO) 1.2 X10'3 (1.1-4.8); LYMPHOCYTES % (AUTO) 13.5 % (21-51); MEAN CORPUSCULAR HEMOGLOBIN 25.5 PG (27.0-31.0); MEAN CORPUSCULAR HGB CONC 32.2 g/dL (33.0-36.5); MEAN CORPUSCULAR VOLUME 79.2 FL (78-98); MEAN PLATELET VOLUME 7.6 FL (7.4-10.4); MONOCYTES # (AUTO) 0.6 X10'3 (0-0.9); MONOCYTES % (AUTO) 6.4 % (2-12); NEUTROPHILS # (AUTO) 6.7 X10'3 (1.8-7.7); NEUTROPHILS % (AUTO) 76.7 % (42-75); PLATELET COUNT 273 X10'3 (140-440); RED BLOOD COUNT 4.66 X10'6 (4.20-5.60); WHITE BLOOD COUNT 8.8 X10'3 (4.5-11.0)
[2018-10-14 12:15] LABS: ALANINE AMINOTRANSFERASE 20 U/L (12-78); ALBUMIN 3.7 G/DL (3.4-5.0); ALKALINE PHOSPHATASE 88 IU/L (46-116); ANION GAP 9 (8-16); ASPARTATE AMINO TRANSFERASE 15 U/L (10-37); BILIRUBIN,TOTAL 0.5 MG/DL (0.1-1.0); BLOOD UREA NITROGEN 14 MG/DL (7-18); BUN/CREATININE RATIO 24.1 (6.6-38.0); CALCIUM 9.5 MG/DL (8.5-10.1); CHLORIDE 104 MMOL/L (99-107); CREATININE 0.58 MG/DL (0.40-0.90); GLUCOSE 133 MG/DL (70-104); POTASSIUM 3.8 MMOL/L (3.5-5.1); SODIUM 141 MMOL/L (135-145); TOTAL CARBON DIOXIDE 27.8 MMOL/L (24-32); TOTAL PROTEIN 7.3 G/DL (6.4-8.2); eGFR > 90 ML/MIN
[2018-10-14 13:10] VITALS: BP 138/73
== END 2018-10-14 13:12 | disposition home or self-care (01) ==
LOC: ER 09:54
DX: J44.1 Chronic obstructive pulmonary disease with (acute) exacerbation (principal); D50.0 Iron deficiency anemia secondary to blood loss (chronic); R60.9 Edema, unspecified; I10 Essential (primary) hypertension; I25.10 Atherosclerotic heart disease of native coronary artery without angina pectoris; I25.2 Old myocardial infarction; E11.9 Type 2 diabetes mellitus without complications; Z90.49 Acquired absence of other specified parts of digestive tract; Z88.8 Allergy status to other drugs, medicaments and biological substances
CPT/HCPCS: 36415; 71046; 80053; 83880; 84484; 85025; 93005; 94640; 94760; 96374; 99284; J2930

== ENCOUNTER 2020-03-19 08:25 | Inpatient (IN) | payer MEDICAID ==
[~2020-03-19] VITALS: Ht 160 cm; Wt 77.3 kg
[~2020-03-19 08:25] MED LIST changes: +FURO-150 PO; -PRED10TA23 PO
[2020-03-19 09:58] LABS: BASOPHILS % (AUTO) 0.3 % (0-1); EOSINOPHILS % (AUTO) 0.2 % (0-6); HEMATOCRIT 43.1 % (35.0-45.0); HEMOGLOBIN 13.9 g/dl (12.0-16.0); LYMPHOCYTES # (AUTO) 2.7 X10'3 (1.1-4.8); LYMPHOCYTES % (AUTO) 19.9 % (21-51); MEAN CORPUSCULAR HEMOGLOBIN 26.7 PG (27.0-31.0); MEAN CORPUSCULAR HGB CONC 32.3 g/dL (33.0-36.5); MEAN CORPUSCULAR VOLUME 82.8 FL (78-98); MEAN PLATELET VOLUME 7.7 FL (7.4-10.4); MONOCYTES # (AUTO) 1.4 X10'3 (0-0.9); MONOCYTES % (AUTO) 9.9 % (2-12); NEUTROPHILS # (AUTO) 9.6 X10'3 (1.8-7.7); NEUTROPHILS % (AUTO) 69.7 % (42-75); PLATELET COUNT 300 X10'3 (140-440); RED BLOOD COUNT 5.21 X10'6 (4.20-5.60); RED CELL DISTRIBUTION WIDTH 17.2 % (11.5-14.5); WHITE BLOOD COUNT 13.7 X10'3 (4.5-11.0)
[2020-03-19 10:16] LABS: ALANINE AMINOTRANSFERASE 87 U/L (12-78); ALBUMIN 3.5 G/DL (3.4-5.0); ALBUMIN/GLOBULIN RATIO 1.2 (1.1-1.5); ALKALINE PHOSPHATASE 92 IU/L (46-116); ANION GAP 7 (8-16); ASPARTATE AMINO TRANSFERASE 59 U/L (10-37); BLOOD UREA NITROGEN 27 MG/DL (7-18); BUN/CREATININE RATIO 35.5 (6.6-38.0); CALCIUM 9.7 MG/DL (8.5-10.1); CHLORIDE 103 MMOL/L (99-107); CREATININE 0.76 MG/DL (0.40-0.90); GLUCOSE 127 MG/DL (70-104); SODIUM 141 MMOL/L (135-145); TOTAL CARBON DIOXIDE 31.2 MMOL/L (24-32); TOTAL PROTEIN 6.5 G/DL (6.4-8.2); eGFR 77 ML/MIN
[2020-03-19 10:22] LABS: MAGNESIUM 1.7 MG/DL (1.5-2.4)
[2020-03-19] MEDS ORDERED: normal saline 1000ML IV soln IVB ONE (10:35)
[2020-03-19 11:14] LABS: CLARITY,URINE SLIGHTLY CLOUDY (Clear); COLOR,URINE YELLOW (Yellow); GLUCOSE, URINE NEGATIVE (Neg); KETONES,URINE 15 mg/dl (Neg); LEUKOCYTE ESTERASE ,URINE NEGATIVE (Neg); NITRITES, URINE NEGATIVE (Neg); OCCULT BLOOD,URINE NEGATIVE (Neg); PH,URINE 5.5 (4.8-8.0); PROTEIN,URINE 100 mg/dl (Neg)
[2020-03-19 11:19] LABS: UA COLLECTION TYPE STRAIGHT CATH
[2020-03-19 11:21] LABS: RBC,URINE NONE SEEN /HPF (0-2); WBC,URINE 0-4 /HPF (0-4)
[2020-03-19 11:22] LABS: BACTERIA,URINE FEW /HPF (Neg); SQUAMOUS EPITHELIAL CELL,UR FEW /LPF (FEW)
[2020-03-19] MEDS ORDERED: acetaminophen 650mg rectal suppository RC PRN (13:15)
[2020-03-19] MEDS ORDERED: mag hydrox/Alum hydrox/simeth 30ml oral suspension PO PRN (13:15)
[2020-03-19] MEDS ORDERED: methylPREDNISolone sod succ 125mg/2ml vial IV ONE (13:15)
[2020-03-19] MEDS ORDERED: magnesium Cl slow-release 64mg tablet PO PRN (13:15)
[2020-03-19] MEDS ORDERED: magnesium hydroxide 30ml (MOM) UD suspension PO PRN (13:15)
[2020-03-19] MEDS ORDERED: ondansetron/PF 4mg/2ml inj IV PRN (13:15)
[2020-03-19] MEDS ORDERED: bisacodyl 10mg suppository rectal RC PRN (13:15)
[2020-03-19] MEDS ORDERED: diphenhydrAMINE 25mg capsule PO PRN (13:15)
[2020-03-19] MEDS ORDERED: acetaminophen 325mg tablet PO PRN ×2 (13:15)
[2020-03-19] MEDS ORDERED: potassium CL 10mEq/100ml bag 100 ML IV PRN ×2 (13:15)
[2020-03-19] MEDS ORDERED: magnesium 2GM in 50ml NS 50 ML IV PRN (13:15)
[2020-03-19] MEDS ORDERED: potassium Cl 20 mEq SR tablet PO PRN ×2 (13:15)
[2020-03-19] MEDS ORDERED: magnesium 4gm in 100ml NS 100 ML IV PRN (13:15)
[2020-03-19] MEDS ORDERED: TIOT4MIS5 IH (13:32)
[2020-03-19] MEDS ORDERED: PRED10TA PO (13:36)
[2020-03-19 14:08] LABS: HEMOGLOBIN A1C 6.7 % (4.5-6.2)
[2020-03-19] MEDS: levoFLOXACIN-Levaquin 750MG/D5 150 ML IV SCH (14:09)
[2020-03-19] MEDS: normal saline 1000ml 1,000 ML IV SCH (14:09)
--- NOTE | 2020-03-19 14:17 | NUR ---
medical record technician at bedside, pt c/o SOB and is asking for breathing tx, RT paged, also moved pt up in bed,
[2020-03-19] MEDS: ipratropium/albuterol 3ml nebule NEB SCH ×3 (15:01→22:49)
--- NOTE | 2020-03-19 15:07 | NUR ---
RT AT BEDSIDE
--- NOTE | 2020-03-19 15:38 | NUR ---
Patient in room ED 14. I have received report from Madai SCHNEIDER and had the opportunity to ask questions and assume patient care.
[2020-03-19 16:00] VITALS: BP 148/90
--- NOTE | 2020-03-19 16:00 | NUR ---
Patient arrived from ED via gurney and transferred to bed at 1600. Patient alert and oriented. Vitals: BP-148/90 (124), HR- 106, SpO2-98 on 2L NC, RR-20 bpm, T- 97.9. BLL, nonskid socks on, CL within reach. NS running at 100 ml/hr.
--- NOTE | 2020-03-19 16:23 | NUR ---
Dr. Dent paged for patient desire to be DNR. Re: Renata Mclaughlin Rm [id number]. Pt wishes to be a DNR, order shows full code. Negro SCHNEIDER [id number]
[2020-03-19] MEDS: HYDROmorphone 1 mg/ml syringe IV PRN (17:18)
--- NOTE | 2020-03-19 18:20 | NUR ---
Orientee documentation: I have reviewed and agree with all interventions, assessments performed and documented by JENNIE Tom.
--- NOTE | 2020-03-19 18:21 | NUR ---
[place] Medication Administration: For this medication-pass time frame, all medication were reviewed, dispensed, administered and documented per hospital policy by JENNIE Tom.
--- NOTE | 2020-03-19 18:23 | NUR ---
Problems reprioritized. Patient report given, questions answered & plan of care reviewed with Josefina SCHNEIDER. Patient resting comftorably in bed and in no apparent distress.
[2020-03-19 19:00] VITALS: BP 139/84
[2020-03-19] MEDS: K and/or MAG REPLACEMENT MC SCH (19:45)
[2020-03-19] MEDS: methylPREDNISolone sod succ 125mg/2ml vial IV SCH (20:37)
[2020-03-19] MEDS: heparin, porcine 5000 units/ml vial SQ SCH (20:37)
[2020-03-19] MEDS: LORazepam 2 mg/ml vial IV PRN (22:21)
[2020-03-19 23:00] VITALS: BP 110/80
[2020-03-20] MEDS: normal saline 1000ml 1,000 ML IV SCH ×2 (02:34→04:46)
[2020-03-20] MEDS: methylPREDNISolone sod succ 125mg/2ml vial IV SCH ×3 (02:55→14:46)
[2020-03-20] MEDS: HYDROmorphone 1 mg/ml syringe IV PRN ×3 (02:59→14:46)
[2020-03-20 03:00] VITALS: BP 113/82
[2020-03-20] MEDS: ipratropium/albuterol 3ml nebule NEB SCH ×6 (03:10→23:12)
[2020-03-20 06:00] VITALS: BP 153/86
[2020-03-20 06:15] LABS: BASOPHILS % (AUTO) 0.2 % (0-1); EOSINOPHILS % (AUTO) 0 % (0-6); HEMATOCRIT 40.3 % (35.0-45.0); HEMOGLOBIN 12.9 g/dl (12.0-16.0); LYMPHOCYTES # (AUTO) 0.8 X10'3 (1.1-4.8); LYMPHOCYTES % (AUTO) 8.4 % (21-51); MEAN CORPUSCULAR HEMOGLOBIN 26.4 PG (27.0-31.0); MEAN CORPUSCULAR VOLUME 82.5 FL (78-98); MONOCYTES # (AUTO) 0.1 X10'3 (0-0.9); MONOCYTES % (AUTO) 1.2 % (2-12); NEUTROPHILS # (AUTO) 8.3 X10'3 (1.8-7.7); NEUTROPHILS % (AUTO) 90.2 % (42-75); PLATELET COUNT 256 X10'3 (140-440); RED BLOOD COUNT 4.89 X10'6 (4.20-5.60); RED CELL DISTRIBUTION WIDTH 17.4 % (11.5-14.5); WHITE BLOOD COUNT 9.2 X10'3 (4.5-11.0)
--- NOTE | 2020-03-20 06:24 | NUR ---
Problems reprioritized. Patient report given, questions answered & plan of care reviewed with Tiffany SCHNEIDER.
[2020-03-20 06:35] LABS: ALANINE AMINOTRANSFERASE 95 U/L (12-78); ALBUMIN 3.1 G/DL (3.4-5.0); ALKALINE PHOSPHATASE 88 IU/L (46-116); ANION GAP 8 (8-16); ASPARTATE AMINO TRANSFERASE 60 U/L (10-37); BILIRUBIN,TOTAL 0.7 MG/DL (0.1-1.0); BLOOD UREA NITROGEN 21 MG/DL (7-18); BUN/CREATININE RATIO 37.5 (6.6-38.0); CALCIUM 9.3 MG/DL (8.5-10.1); CHLORIDE 105 MMOL/L (99-107); CHOL/HDL RATIO 2.5 (0.00-4.99); CHOLESTEROL 162 MG/DL (0-200); CREATININE 0.56 MG/DL (0.40-0.90); GLUCOSE 127 MG/DL (70-104); HDL CHOLESTEROL 65 MG/DL (35-60); LDL CHOLESTEROL 67 MG/DL (50-100); MAGNESIUM 1.7 MG/DL (1.5-2.4); PHOSPHORUS 3.2 MG/DL (2.3-4.5); POTASSIUM 4.6 MMOL/L (3.5-5.1); SODIUM 142 MMOL/L (135-145); TOTAL CARBON DIOXIDE 29.4 MMOL/L (24-32); TOTAL PROTEIN 6.3 G/DL (6.4-8.2); TRIGLYCERIDES 132 MG/DL (20-135); eGFR > 90 ML/MIN
[2020-03-20] MEDS: levoTHYROXINE 75mcg tablet PO SCH (07:57)
[2020-03-20] MEDS: levoFLOXACIN-Levaquin 750MG/D5 150 ML IV SCH (07:58)
[2020-03-20] MEDS: heparin, porcine 5000 units/ml vial SQ SCH ×2 (07:58→19:47)
[2020-03-20] MEDS ORDERED: non-formulary drug (Tiotropium Bromide (Spiriva Respimat) 2 PUFFS) IH SCH (08:00)
[2020-03-20] MEDS: K and/or MAG REPLACEMENT MC SCH ×2 (08:00→20:00)
--- NOTE | 2020-03-20 08:19 | NUR ---
PAGER ID: [phone] MESSAGE: [id number] Tevin Mclaughlin c/o chest pain staring in L armpit radiating to R side of chest. HR 103 SBP 157. No SOB, no N/V/lightheadedness. EKG in process per standing orders. Just TERRANCE. Tiffany [phone]
[2020-03-20] MEDS ORDERED: iohexol 350MG/ML 100ml bottle IV ONE ×2 (10:36→12:57)
[2020-03-20 11:00] VITALS: BP 148/96
--- NOTE | 2020-03-20 14:22 | NUR ---
Spoke with Internet Marketing Intern Anna after her meeting with patient. Per Anna, patient is refusing any alterations to food/diet with patient stating "I don't want to prolong my life." Despite clarifying that food texture alterations make it safer and easier to swallow, she repeatedly says "I don't want to prolong my life."
[2020-03-20 15:00] VITALS: BP 159/97
--- NOTE | 2020-03-20 15:23 | NUR ---
Malnutrition consult: Pt with wt hx of 168.5 lbs taken 09/21/18 with a bed scale, current documented wt is 170 lbs however no documentation of how wt was obtained. Pt seen at bedside states her weight fluctuates and states she weighed 165 lbs two years ago and gained weight up to 185 lbs. Pt believes her current wt is 175 lbs however is just guessing and unsure of how much she truly weighs or when she was last weighed. Pt reports difficulty swallowing has been going on for roughly 20 years and it resolved but came back about 3 weeks ago. Pt reports only consuming a few bites of cottage cheese and meat over the last three weeks just to ensure no negative side effects from taking med rx on a complete empty stomach. Pt reports she even has difficulty swallowing liquids at times. Pt currently on a heart healthy diet documented to be refusing meals. Pt declines BSS with ST or texture modifications at this time as she does not want any intervention to prolong her life. RD discussed concern with her choking on food/liquids d/t reported swallowing difficulties and that a texture modification would be beneficial to reduce risk of choking and to ease pain when eating however pt adamantly refuses intervention. Discussion was reported to patient's bedside RN. Pt with no edema or significant decrease in muscle strength. No significantly visible fat or muscle wasting noted during nutrition focused physical exam however pt reports she has noticed muscle wasting, which is likely given poor PO intake. Pt currently meets criteria for malnutrition. Malnutrition education with ONS recommendations not appropriate at this time given patient's wishes to not prolong life and likely unsafe for PO intake at this time. Pt admit with respiratory failure with hx end stage COPD, s/p CT with findings suspicious for primary lung carcinoma with metastatic disease per report. Pt provided with RD contact information. Will continue to follow closely. Recommendations: 1) Recommend BSS with ST if to continue with PO diet although pt is refusing BSS or texture modifications at this time as well as refusing meals 2) Monitor for appropriateness of nutrition intervention; Pt reporting she does not want nutrition to prolong her life 3) Bowel care PRN 4) Scaled weights per rx Addendum: 03/20/20 at [address] Amended: Links added.
[2020-03-20 18:00] VITALS: BP 146/86
--- NOTE | 2020-03-20 18:18 | NUR ---
Patient in room PCU 3013. I have received report from Tiffany SCHNEIDER and had the opportunity to ask questions and assume patient care.
--- NOTE | 2020-03-20 18:48 | NUR ---
Problems reprioritized. Patient report given, questions answered & plan of care reviewed with Sarah SCHNEIDER.
[2020-03-20 22:00] VITALS: BP 129/100
[2020-03-21] MEDS: HYDROmorphone 1 mg/ml syringe IV PRN ×5 (00:05→23:30)
[2020-03-21 02:00] VITALS: BP 132/98
[2020-03-21] MEDS: ipratropium/albuterol 3ml nebule NEB SCH ×3 (02:57→12:52)
--- NOTE | 2020-03-21 04:40 | NUR ---
Patient stated ' Just to let you know i feel like i am getting more confused." Was able to answer orientation questions appropriately, but have taken precautions and placed TABs on patient in case she tries to get out of bed w/out help. Will continue to monitor and reassess.
[2020-03-21] MEDS: normal saline 1000ml 1,000 ML IV SCH (04:50)
[2020-03-21 05:43] LABS: BASOPHILS % (AUTO) 0.2 % (0-1); EOSINOPHILS % (AUTO) 0.1 % (0-6); HEMATOCRIT 42.1 % (35.0-45.0); HEMOGLOBIN 13.3 g/dl (12.0-16.0); LYMPHOCYTES % (AUTO) 6.1 % (21-51); MEAN CORPUSCULAR HEMOGLOBIN 26.2 PG (27.0-31.0); MEAN CORPUSCULAR HGB CONC 31.6 g/dL (33.0-36.5); MONOCYTES # (AUTO) 1.1 X10'3 (0-0.9); MONOCYTES % (AUTO) 7.1 % (2-12); NEUTROPHILS # (AUTO) 13.6 X10'3 (1.8-7.7); NEUTROPHILS % (AUTO) 86.5 % (42-75); PLATELET COUNT 342 X10'3 (140-440); RED BLOOD COUNT 5.07 X10'6 (4.20-5.60); RED CELL DISTRIBUTION WIDTH 17.6 % (11.5-14.5); WHITE BLOOD COUNT 15.7 X10'3 (4.5-11.0)
[2020-03-21 05:48] LABS: ALANINE AMINOTRANSFERASE 111 U/L (12-78); ALBUMIN 3.4 G/DL (3.4-5.0); ALKALINE PHOSPHATASE 96 IU/L (46-116); ANION GAP 5 (8-16); ASPARTATE AMINO TRANSFERASE 63 U/L (10-37); BILIRUBIN,TOTAL 0.6 MG/DL (0.1-1.0); BLOOD UREA NITROGEN 27 MG/DL (7-18); BUN/CREATININE RATIO 35.1 (6.6-38.0); CALCIUM 10.1 MG/DL (8.5-10.1); CHLORIDE 106 MMOL/L (99-107); CREATININE 0.77 MG/DL (0.40-0.90); GLUCOSE 131 MG/DL (70-104); MAGNESIUM 1.9 MG/DL (1.5-2.4); PHOSPHORUS 3.1 MG/DL (2.3-4.5); POTASSIUM 4.8 MMOL/L (3.5-5.1); SODIUM 144 MMOL/L (135-145); TOTAL CARBON DIOXIDE 32.7 MMOL/L (24-32); TOTAL PROTEIN 6.7 G/DL (6.4-8.2); eGFR 75 ML/MIN
--- NOTE | 2020-03-21 05:54 | NUR ---
Patient received Diluadid at 0550 versus time saved in EMAR due to IV access no longer patent and required a new IV.
[2020-03-21 06:00] VITALS: BP 134/92
--- NOTE | 2020-03-21 06:34 | NUR ---
Problems reprioritized. Patient report given, questions answered & plan of care reviewed with Martinez RN.
--- NOTE | 2020-03-21 06:35 | NUR ---
Patient in room PCU 3013. I have received report from otis marie and had the opportunity to ask questions and assume patient care.
[2020-03-21] MEDS: levoTHYROXINE 75mcg tablet PO SCH ×2 (07:30→08:11)
[2020-03-21] MEDS: predniSONE 20 mg tablet PO SCH ×2 (08:00→08:12)
[2020-03-21] MEDS: K and/or MAG REPLACEMENT MC SCH (08:00)
[2020-03-21] MEDS: heparin, porcine 5000 units/ml vial SQ SCH (08:13)
--- NOTE | 2020-03-21 10:42 | NUR ---
PAGER ID: [phone] MESSAGE: DR. PUGA, [id number]/, HAS BEEN REFUSING MEALS, REFUSED ALL PO MEDS. STATES "I CAN'T SWALLOW". JUAN A [id number], TY
[2020-03-21 11:00] VITALS: BP 144/95
[2020-03-21] MEDS ORDERED: levoFLOXACIN 750MG TABLET PO SCH (11:00)
[2020-03-21] MEDS ORDERED: LORazepam 2 mg/ml vial IV ONE (11:50)
[2020-03-21] MEDS ORDERED: morphine 10mg/0.5ml (conc. morphine) oral syringe PO PRN (14:00)
--- NOTE | 2020-03-21 14:07 | NUR ---
PAGER ID: [phone] MESSAGE: DR. PUGA, [id number]/, ALLERGIC TO OPIOIDS- MORPHINE ANALOGS. HAS BEEN RECEIVING DILAUDID IV, NOW HAVE ROXANOL ORDERS. JUAN A [id number]. TY
[2020-03-21 18:00] VITALS: BP 147/94
[2020-03-21] MEDS: LORazepam 2 mg/ml vial IV PRN (18:11)
--- NOTE | 2020-03-21 18:20 | NUR ---
Problems reprioritized. Patient report given, questions answered & plan of care reviewed with otis acuna.
--- NOTE | 2020-03-21 18:29 | NUR ---
Patient in room PCU 3013. I have received report from Martinez SCHNEIDER and had the opportunity to ask questions and assume patient care.
--- NOTE | 2020-03-22 00:39 | NUR ---
Dr Hopson PAGER ID: [phone] MESSAGE: Renata Mclaughlin [id number] She has . Was on comfort care. No orders for RN to call time of . Kerri SCHNEIDER ext [phone]
== END 2020-03-22 02:01 | disposition expired | DRG 136 ==
LOC: ER 08:25 → ED HOLD 13:14 → PCU 3S 16:03
PROVIDERS: ADMIT Family Medicine; ATTEND Family Medicine
DX: C34.91 Malignant neoplasm of unspecified part of right bronchus or lung (principal); J18.9 Pneumonia, unspecified organism; E03.9 Hypothyroidism, unspecified; E11.9 Type 2 diabetes mellitus without complications; E86.0 Dehydration; I10 Essential (primary) hypertension; I25.10 Atherosclerotic heart disease of native coronary artery without angina pectoris; J44.0 Chronic obstructive pulmonary disease with (acute) lower respiratory infection; J44.1 Chronic obstructive pulmonary disease with (acute) exacerbation; Z60.2 Problems related to living alone; J96.90 Respiratory failure, unspecified, unspecified whether with hypoxia or hypercapnia; R62.7 Adult failure to thrive; Z51.5 Encounter for palliative care; F32.9 Major depressive disorder, single episode, unspecified; Z66 Do not resuscitate; Z79.890 Hormone replacement therapy; I25.2 Old myocardial infarction; Z80.0 Family history of malignant neoplasm of digestive organs; Z80.8 Family history of malignant neoplasm of other organs or systems; Z87.891 Personal history of nicotine dependence; Z90.49 Acquired absence of other specified parts of digestive tract; Z68.30 Body mass index [BMI] 30.0-30.9, adult; Z99.81 Dependence on supplemental oxygen; I46.9 Cardiac arrest, cause unspecified
CPT/HCPCS: 36415; 71045; 71275; 73030; 80053; 80061; 81001; 83036; 83605; 83735; 83880; 84100; 84443; 84484; 85025; 87040; 87081; 93005; 93308; 94640; 94760; 97110; 97116; 97161; 99285; G0378; J1170; J1644; J1956; J2060; J2930; J7030; J7512; Q9967